=== PATIENT | male | born 1960 | race Caucasian/White ===

== ENCOUNTER 2018-04-14 09:09 | Emergency (ER) | payer BC, OTHER ==
[2018-04-14 09:12] VITALS: BMI 29.7
[2018-04-14 09:21] VITALS: O2SAT 98
--- NOTE | 2018-04-14 10:01 | CT ---
Date of service: 04/14/2018 PROCEDURE: CT HEAD WITHOUT CONTRAST. HISTORY: headache COMPARISON: None available. TECHNIQUE: Axial computed tomography images were obtained through the head/brain without intravenous contrast. Radiation dose: Total exam DLP = 846 mGy-cm. This CT exam was performed using one or more of the following dose reduction techniques: Automated exposure control, adjustment of the mA and/or kV according to patient size, and/or use of iterative reconstruction technique. FINDINGS: HEMORRHAGE: No intracranial hemorrhage. BRAIN: No mass effect or edema. There is right posterior very shunt catheter periventricular hypodensity probably relating to encephalomalacia changes this patient with a shunt catheter in place. VENTRICLES: The collateral ventricles and the 3rd ventricle are dilated the 4th ventricle is normal in size. The temporal horns are minimally prominent as well. ; change assessment not possible without priors. The right sided shunt catheter tip is in the mid section of the lateral right ventricle. CALVARIUM: Postsurgical changes in the right high parietal calvarium along the right shunt catheter PARANASAL SINUSES: Unremarkable as visualized. No significant inflammatory changes. MASTOID AIR CELLS: Unremarkable as visualized. No inflammatory changes. OTHER FINDINGS: None. IMPRESSION: Right sided shunt catheter tip in lateral right ventricle. Ventricular segments dilated as detailed above. The hypodensity surrounding the right ventricular shunt catheter tract is compatible with encephalomalacia change. Assessment and ventricular size not possible without prior studies. No hemorrhage mass effect or midline shift noted. No extra-axial collections appreciated. Follow-up recommended Comparison with any prior outside studies also advised. Comments: Study marked for PA review .
[2018-04-14 10:12] LABS: BASO % 0.5 % (0.0-2.0); EOS % 0.3 % (0.0-4.0); HEMOGLOBIN 14.7 g/dL (12.0-18.0); LYMPH # 1.1 K/uL (1.0-4.3); LYMPH % 17.1 % (20.0-40.0); MEAN CELL VOLUME 86.9 fl (80.0-94.0); MEAN CORPUSCULAR HEMOGLOBIN 30.9 pg (27.0-31.0); MEAN CORPUSCULAR HGB CONC 35.5 g/dL (33.0-37.0); MEAN PLATELET VOLUME 7.7 fl (7.2-11.7); MONO # 0.5 K/uL (0.0-0.8); MONO % 7.2 % (0.0-10.0); NEUT # 4.9 K/uL (1.8-7.0); NEUT % 74.9 % (50.0-75.0); NRBC % 0.1 % (0.0-0.0); RBC 4.76 Mil/uL (4.40-5.90); RED CELL DISTRIBUTION WIDTH 13.6 % (11.5-14.5); WHITE BLOOD COUNT 6.6 K/uL (4.8-10.8)
[2018-04-14 10:28] LABS: ALB/GLOB RATIO 1.2 (1.0-2.1); ALBUMIN 4.1 g/dL (3.5-5.0); BLOOD UREA NITROGEN 20 mg/dl (9-20); CALCIUM 9.5 mg/dL (8.4-10.2); GFR NON-AFRICAN AMERICAN > 60
[2018-04-14 11:18] LABS: ALT/SGPT 23 U/L (21-72); AST/SGOT 28 U/L (17-59)
--- NOTE | 2018-04-14 11:19 | ED PDOC ---
HPI: Headache Time Seen by Provider: 04/14/18 09:10 Chief Complaint (Nursing): Dizziness/Lightheaded Chief Complaint (Provider): Headache and Dizziness History Per: Patient History/Exam Limitations: language barrier (pts son Karishma at bedside is newscast director as per pts wishes) Onset/Duration Of Symptoms: Days Current Symptoms Are (Timing): Still Present Additional Complaint(s): 57 year old male presents to the ER for an evaluation of left-sided headache and pain behind his left eye onset last night. (no eye pain per se, only behind the eye, in the head) Patient reports of associated symptoms of dizziness and vomiting once which resolved but he felt slightly dizzy afterwards. Reports this happened to him 2-3 months ago, where he had dizziness but resolved on its own. Currently, headache resolved and has slight dizziness when he moves his head from side to side. no fever, neck pain, chest pain. Denies recent travel or sick contacts. pt states has history of R shunt placed in brain around 10 yr ago. PMD: Dr. Membreno Past Medical History Reviewed: Historical Data, Nursing Documentation, Vital Signs Vital Signs: Last Vital Signs Temp 98.4 F 04/14/18 09:12 Pulse 71 04/14/18 09:12 Resp 17 04/14/18 09:12 BP 133/82 04/14/18 09:12 Pulse Ox 98 04/14/18 09:17 - Medical History PMH: Hypercholesterolemia Denies: Chronic Kidney Disease - Surgical History Surgical History: Cholecystectomy Other surgeries: [employer] shunt - Family History Family History: States: Unknown Family Hx - Social History Current smoker - smoking cessation education provided: No Alcohol: Social Drugs: Denies - Home Medications Home Medications: Ambulatory Orders Medication Instructions Recorded Aspirin [Aspirin Chewable] 81 mg PO DAILY #0 chew 09/20/15 Atorvastatin [Lipitor] 10 mg PO HS #0 tab 09/20/15 Meclizine [Meclizine*] 25 mg PO Q6 PRN #6 tab 04/14/18 - Allergies Allergies/Adverse Reactions: Allergies Allergy/AdvReac Type Severity Reaction Status Date / Time No Known Allergies Allergy Verified 04/14/18 09:17 Review of Systems ROS Statement: Except As Marked, All Systems Reviewed And Found Negative Constitutional: Negative for: Fever, Chills Eyes: Positive for: Pain (left eye) Gastrointestinal: Positive for: Vomiting. Negative for: Nausea, Abdominal Pain , Diarrhea Neurological: Positive for: Headache, Dizziness Psych: Negative for: Suicidal ideation (homicidal ideation ) Physical Exam - Reviewed Nursing Documentation Reviewed: Yes Vital Signs Reviewed: Yes - Physical Exam Appears: Positive for: Non-toxic, No Acute Distress Head Exam: Positive for: ATRAUMATIC, NORMAL INSPECTION, NORMOCEPHALIC Skin: Positive for: Normal Color, Warm, Dry Eye Exam: Positive for: Normal appearance, EOMI, PERRL ENT: Positive for: Normal ENT Inspection Neck: Positive for: Normal, Painless ROM, Supple. Negative for: Decreased ROM Cardiovascular/Chest: Positive for: Regular Rate, Rhythm. Negative for: Murmur Respiratory: Positive for: Normal Breath Sounds. Negative for: Decreased Breath Sounds, Wheezing, Respiratory Distress Gastrointestinal/Abdominal: Positive for: Normal Exam, Bowel Sounds, Soft. Negative for: Tenderness, Guarding, Rebound Back: Positive for: Normal Inspection Extremity: Positive for: Normal ROM. Negative for: Tenderness, Pedal Edema, Deformity Neurologic/Psych: Positive for: Alert, aviation electronics technician II-XII (intact), Oriented (x3), Gait (steady ). Negative for: Motor/Sensory Deficits, Mood/Affect, Cerebellar Tests , Aphasia, Facial Droop - Laboratory Results Result Diagrams: 04/14/18 10:03 04/14/18 10:03 - ECG O2 Sat by Pulse Oximetry: 98 (RA) Pulse Ox Interpretation: Normal Medical Decision Making Medical Decision Making: Time: 934 Initial Impression: headache r/o vertigo r/o intracranial process Initial Plan: --Head w/o Contrast CT --CMP --Troponin --CBC w/ Differential --Antivert 25mg --Reevaluation Time: 958 PROCEDURE: CT HEAD WITHOUT CONTRAST. HISTORY: headache COMPARISON: None available. TECHNIQUE: Axial computed tomography images were obtained through the head/brain without intravenous contrast. Radiation dose: Total exam DLP = 846 mGy-cm. This CT exam was performed using one or more of the following dose reduction techniques: Automated exposure control, adjustment of the mA and/or kV according to patient size, and/or use of iterative reconstruction technique. FINDINGS: HEMORRHAGE: No intracranial hemorrhage. BRAIN: No mass effect or edema. There is right posterior very shunt catheter periventricular hypodensity probably relating to encephalomalacia changes this patient with a shunt catheter in place. VENTRICLES: The collateral ventricles and the 3rd ventricle are dilated the 4th ventricle is normal in size. The temporal horns are minimally prominent as well. ; change assessment not possible without priors. The right sided shunt catheter tip is in the mid section of the lateral right ventricle. CALVARIUM: Postsurgical changes in the right high parietal calvarium along the right shunt catheter PARANASAL SINUSES: Unremarkable as visualized. No significant inflammatory changes. MASTOID AIR CELLS: Unremarkable as visualized. No inflammatory changes. OTHER FINDINGS: None. IMPRESSION: Right sided shunt catheter tip in lateral right ventricle. Ventricular segments dilated as detailed above. The hypodensity surrounding the right ventricular shunt catheter tract is compatible with encephalomalacia change. Assessment and ventricular size not possible without prior studies. No hemorrhage mass effect or midline shift noted. No extra-axial collections appreciated. Follow-up recommended Comparison with any prior outside studies also advised. Comments: Study marked for PA review . EKG presents normal sinus rhythm at 66bpm. 1230 pt and pts son karishma at bedside aware of results and plan. Patient advised to follow up with surgeon that performed the [employer] shunt. and also to follow up with pts primary doctor in 1-2 days. pts son states that he would be able to see his primary dr stuton in the next day or two. pt reevaluated - states that dizziness resolved. he ambulated with steady gait and states that the meclizine definitely helped. Upon provider evaluation patient is medically stable, and requires no further treatment in the ED at this time. Patient will be discharged. Counseling was provided and all questions were answered regarding diagnosis and need for follow up with PCP for dizziness. Son states the patient will follow up with PMD today. There is agreement to discharge plan. Return if symptoms persist or worsen. Scribe Attestation: Documented by [employer], acting as a scribe for Chelsey Remy MD Provider Scribe Attestation: All medical record entries made by the Arunaibe were at my direction and personally dictated by me. I have reviewed the chart and agree that the record accurately reflects my personal performance of the history, physical exam, medical decision making, and the department course for this patient. I have also personally directed, reviewed, and agree with the discharge instructions and disposition. 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
[2018-04-14 12:41] VITALS: BP 112/76; PULSE 67; RESP 16; TEMP 97.5
== END 2018-04-14 12:38 | disposition home or self-care (01) ==
LOC: H.ER 09:09
DX: R42 Dizziness and giddiness (principal); E78.00 Pure hypercholesterolemia, unspecified; Z98.2 Presence of cerebrospinal fluid drainage device